=== PATIENT | male | born 1990 | race Caucasian/White ===

== ENCOUNTER 2017-07-13 17:09 | Emergency (ER) | payer OTHER ==
[~2017-07-13] VITALS: Ht 180.3 cm; Wt 99.8 kg
[2017-07-13 17:47] LABS: ABSOLUTE BASOPHIL COUNT 0 /CUMM (0.0-0.2); ABSOLUTE EOSINOPHIL COUNT 0.1 /CUMM (0.0-0.7); ABSOLUTE GRANULOCYTE CT 7.3 /CUMM (1.4-6.5); ABSOLUTE LYMPH COUNT 2.5 /CUMM (1.2-3.4); ABSOLUTE MONOCYTE COUNT 0.7 /CUMM (0.10-0.60); BASOPHIL % 0.2 % (0.0-2.0); EOSINOPHIL % 0.7 % (0-5); GRANULOCYTE % 69.2 % (42.2-75.2); HEMATOCRIT 45.6 % (42-52); MEAN CORPUSCULAR HGB CONC 33.7 G/DL (33.0-37.0); MEAN CORPUSCULAR VOLUME 83.3 FL (80.0-94.0); MEAN PLATELET VOLUME 9.3 FL (7.4-10.4); PLATELET COUNT 265 /CUMM (130-400); RED BLOOD CELL CT 5.48 /CUMM (4.70-6.10); WHITE BLOOD CELL COUNT 10.5 /CUMM (4.8-10.8)
--- NOTE | 2017-07-13 17:58 | RADIOLOGY REPORT ---
EXAMINATION: XR CHEST 2 VIEWS CLINICAL INFORMATION: Chest pain. COMPARISON: None. TECHNIQUE: Frontal and lateral views of the chest were obtained. FINDINGS: The heart, great vessels, pulmonary vasculature and mediastinum are normal. The lungs show no focal infiltrate, effusion or pneumothorax. There is no acute osseous abnormality. IMPRESSION: No active cardiopulmonary disease.
--- NOTE | 2017-07-13 19:21 | ED CARDIAC/CP/PALPITATIONS ---
History of Present Illness General Chief Complaint: Chest Pain Stated Complaint: CHEST PAIN Source: patient Exam Limitations: no limitations Vital Signs & Intake/Output Vital Signs & Intake/Output Vital Signs Date Time Temp Pulse Resp B/P B/P Pulse O2 O2 Flow FiO2 Mean Ox Delivery Rate 07/13 1929 96 Room Air 07/13 1722 98.5 80 18 141/77 100 Room Air Allergies Uncoded Allergies: Allergy Other SEASONAL Med Allergies PCN Reconcile Medications Ibuprofen 800 MG TABLET 1 TAB PO TID PRN PAIN Methocarbamol (Robaxin-750) 750 MG TABLET 1 TAB PO TID PRN PAIN Triage Note: 26 YO MALE TO TRIAGE C/O R SIDED CHEST PAIN SINCE THIS AM. DENIES NVD. DENIES SOB. STATES THE PAIN INTENSIFIES WITH INHALATION. Triage Nurses Notes Reviewed? yes Onset: Gradual Duration: hour(s): (12), better, continues in ED Timing: single episode today Quality/Severity: mild, sharp Location: central Radiation: no radiation Activities at Onset: none Prior Chest Pain/Card Workup: no prior chest pain, no prior cardiac workup Modifying Factors: Worsens With: breathing, movement, palpation. Nitro Today/Relief: no nitro taken today Aspirin Today: no aspirin today HPI: 26-year-old male with no past medical history is right ratio chest pain. Patient states he woke up at 7 AM this morning the chest pain was present. It did not wake him up from sleep. The pain is located in the center of his chest and does not radiate. He describes it as a sharp pain that is worse with deep inspiration palpation and movement of the upper extremity. There is no trauma or triggering event. He never had anything like this before. He denies any shortness of breath hemoptysis recent surgery recent trauma. No drug or testosterone/estrogen use. No history of blood clots. He does report a family history of SC in his father while he was in his 40s. The pain does not get worse with exertion. No nausea vomiting sweats chills and back pain or abdominal pain. (Chip Lyn) Past History Travel History Traveled to [place] past 21 day No Medical History Any Pertinent Medical History? 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 No (Chip Lyn) Review of Systems Review of Systems Constitutional: Reports: no symptoms. EENTM: Reports: no symptoms. Respiratory: Reports: no symptoms. Cardiovascular: Reports: see HPI, chest pain. GI: Reports: no symptoms. Genitourinary: Reports: no symptoms. Musculoskeletal: Reports: no symptoms. Skin: Reports: no symptoms. Neurological/Psychological: Reports: no symptoms. Hematologic/Endocrine: Reports: no symptoms. Immunologic/Allergic: Reports: no symptoms. All Other Systems: Reviewed and Negative (Chip Lyn) Physical Exam Physical Exam General Appearance: well developed/nourished, no apparent distress, alert, awake Head: atraumatic, normal appearance Eyes: Bilateral: normal appearance, PERRL, EOMI. Ears, Nose, Throat: normal pharynx, normal ENT inspection, hearing grossly normal Neck: normal inspection, supple, full range of motion Respiratory: normal breath sounds, no respiratory distress, lungs clear, chest wall tenderness to palpation over the sternum no bruising swelling and abrasions Cardiovascular: regular rate/rhythm, normal peripheral pulses Peripheral Pulses: 2+ radial (R), 2+ radial (L) Gastrointestinal: soft, non-tender Back: normal inspection, normal range of motion Extremities: normal inspection, normal range of motion, no edema Neurologic/Psych: no motor/sensory deficits, awake, alert, oriented x 3, normal gait Skin: intact, normal color, warm/dry Lymphatic: no anterior cervical kathy Core Measures ACS in differential dx? No CVA/TIA Diagnosis No Sepsis Present: No Sepsis Focused Exam Completed? No (Chip Lyn) Progress Differential Diagnosis: AMI, aortic dissection, costochondritis, musculoskeletal pain, myocarditis, pancreatitis, pericarditis, pneumonia, pneumothorax, pulmonary embolism, PUD/GERD, PVCs/PACs, rib fracture, unstable angina Plan of Care: Orders Procedure Date/time Status TROPONIN LEVEL 07/13 1713 Complete COMPREHENSIVE METABOLIC PANEL 07/13 1713 Complete CBC WITHOUT DIFFERENTIAL 07/13 1713 Complete EKG 07/13 171 Active Laboratory Tests 07/13/17 1727: Anion Gap 13, Estimated GFR > 60, BUN/Creatinine Ratio 13.0, Glucose 81, Calcium 9.8, Total Bilirubin 0.4, AST 24, ALT 39, Alkaline Phosphatase 101, Troponin I < 0.01, Total Protein 8.0, Albumin 4.9, Globulin 3.1, Albumin/Globulin Ratio 1.6, CBC w Diff NO MAN DIFF REQ, RBC 5.48, MCV 83.3, MCH 28.0, MCHC 33.7, RDW 13.0, MPV 9.3, Gran % 69.2, Lymphocytes % 23.4, Monocytes % 6.5, Eosinophils % 0.7, Basophils % 0.2, Absolute Granulocytes 7.3 H, Absolute Lymphocytes 2.5, Absolute Monocytes 0.7 H, Absolute Eosinophils 0.1, Absolute Basophils 0 Patient seen and evaluated. His chest pain has started over 12 hours ago has been constant but has improved since first starting. It is reproducible with palpation range of motion and deep inspiration. Patient is perc negative. EKG is normal sinus rhythm without any acute changes. Troponin all blood work is negative. Chest x-ray is clear. Patient was medicated with ibuprofen and reassessed. He feels like his pain has improved significantly. Patient will be treated for a Musca skeletal etiology with rest and heating pad Tylenol ibuprofen. Discussed return precautions follow-up with primary care doctor. Patient appears well he agrees. Diagnostic Imaging: Viewed by Me: Radiology Read. Discussed w/RAD: Radiology Read. CXR Impression: PATIENT: SHERRY GALAN III PRESENT AGE: 26 PATIENT ACCOUNT NO: [id number] : 90 LOCATION: [facility] ORDERING PHYSICIAN: Chip BOYD SERVICE DATE: 07/13/17 EXAM TYPE: RAD - XRY- CHEST XRAY, TWO VIEWS EXAMINATION: XR CHEST 2 VIEWS CLINICAL INFORMATION: Chest pain. COMPARISON: None. TECHNIQUE: Frontal and lateral views of the chest were obtained. FINDINGS: The heart, great vessels, pulmonary vasculature and mediastinum are normal. The lungs show no focal infiltrate, effusion or pneumothorax. There is no acute osseous abnormality. IMPRESSION: No active cardiopulmonary disease. DICTATED BY: Renny Whipple MD DATE/TIME DICTATED:1753 JAVA DEVELOPER:KAYA DATE/TIME TRANSCRIBED:07/13/171753 CONFIDENTIAL, DO NOT COPY WITHOUT APPROPRIATE AUTHORIZATION. <Electronically signed in Other Vendor System> SIGNED BY: Renny Whipple MD 07/13/171757 Initial ED EKG: normal sinus rhythm (Chip Lyn) Departure Departure Disposition: HOME OR SELF CARE Condition: Stable Clinical Impression Primary Impression: Chest wall pain Referrals: Patient Has No Primary Care Dr (PCP/Family) Additional Instructions: REST AVOID EXCESSIVE PHYSICAL ACTIVITY HEAVY LIFTING OR BENDING. IBUPROFEN 800MG EVERY 8 HOURS NEEDED for pain. Robaxin as a muscle relaxer that cannot also be used every 8 hours as needed. This may cause drowsiness. Make a follow -up with her primary care doctor as soon as possible. Monitor symptoms closely return with any concerns. Departure Forms: Customer Survey General Discharge Information Prescriptions: Current Visit Scripts Ibuprofen 1 TAB PO TID PRN PAIN #30 TAB Methocarbamol (Robaxin-750) 1 TAB PO TID PRN PAIN #30 TAB (Chip Lyn) PA/PULLEY MAINTAINER Co-Sign Statement Statement: ED Attending supervision documentation- [] I saw and evaluated the patient. I have also reviewed all the pertinent lab results and diagnostic results. I agree with the findings and the plan of care as documented in the PA's/PULLEY MAINTAINER's documentation. x[] I have reviewed the ED Record and agree with the PA's/PULLEY MAINTAINER's documentation. [] Additions or exceptions (if any) to the PAs/PULLEY MAINTAINER's note and plan are summarized below: [] (Catarino JESUS,Samuel Zaman) Critical Care Note Critical Care Note Critical Care Time: non-applicable (Chip Lyn)
[2017-07-13] MEDS ORDERED: IBUPROFEN800 M1 PO (19:38)
[2017-07-13] MEDS ORDERED: ROBAXIN-750750 M1 PO (19:38)
[2017-07-13 19:43] VITALS: BP 124/84
== END 2017-07-13 19:50 ==
LOC: ERH 17:09
PROVIDERS: Physician Assistant Medical
DX: R07.89 Other chest pain (principal)
CPT/HCPCS: 71046; 93005; 93010